=== PATIENT | male | born 1970 | race Caucasian/White ===

== ENCOUNTER → 2016-05-27 | Outpatient (CLI) | payer OTHER ==
[~2016-05-27] MED LIST: CHOL100010 PO; DPRSCR15 TOP; FEXO1TAB49 PO; MULT-506 PO; OXYC-106 PO; [UNRECOGNIZED DRUG - CODE] PO
--- NOTE | 2016-05-27 12:12 | DIAGNOSTIC IMAGING REPORT ---
LEFT FOOT MIN 3 VIEWS ROUTINE CLINICAL HISTORY: FOOT PAIN COMPARISON: None. DISCUSSION: No acute fractures or subluxations are visualized. There is a BB-like metallic foreign body at the level of the webspace between the first and second toes. Please correlate clinically. There are minor degenerative changes the level tarsometatarsal joints. IMPRESSION: 1. No acute fractures. 2. BB-like foreign body located at the level of the webspace between the first and second toes. Clinical correlation is advocated Electronically signed by: Nemesio Angelo M.D. 05/27/2016 12:11 PM Dictated Date/Time: 05/27/2016 12:09 PM
== END | disposition home or self-care (01) ==
LOC: C.RAD 11:50
PROVIDERS: ATTEND Neuromusculoskeletal Medicine & OMM
DX: M79.672 Pain in left foot (principal); R93.7 Abnormal findings on diagnostic imaging of other parts of musculoskeletal system

== ENCOUNTER → 2016-06-25 | Outpatient (CLI) | payer OTHER ==
[2016-06-25 17:29] LABS: BASO % 0.6 %; BASO ABS # 0.04 K/uL (0-0.2); COMPLETE YES; EOS % 4.7 %; HEMATOCRIT 43.4 % (42-52); IG% 0.5 %; LYMPH % 21.7 %; LYMPH ABS # 1.35 K/uL (1.2-3.4); MEAN CELL VOLUME 91.6 fL (80-100); MEAN CORPUSCULAR HEMOGLOBIN 32.7 pg (25-34); MEAN CORPUSCULAR HGB CONC 35.7 g/dl (32-36); MEAN PLATELET VOLUME 9.8 fL (7.4-10.4); MONO % 7.4 %; NEUT % 65.1 %; PLATELET COUNT 261 K/uL (130-400); RED BLOOD COUNT 4.74 M/uL (4.7-6.1); WHITE BLOOD COUNT 6.22 K/uL (4.8-10.8)
[2016-06-25 17:38] LABS: ALT/SGPT 56 U/L (12-78); BLOOD UREA NITROGEN 11 mg/dl (7-18); BUN/CREATININE RATIO 9.8 (10-20); CARBON DIOXIDE 26 mmol/L (21-32); CHLORIDE 109 mmol/L (98-107); CHOLESTEROL 170 mg/dl (0-200); GLUCOSE 96 mg/dl (70-99); POTASSIUM 4.3 mmol/L (3.5-5.1); SODIUM 142 mmol/L (136-145)
[2016-06-25 17:49] LABS: ALB/GLOB RATIO 1.1 (0.9-2); ALKALINE PHOSPHATASE 87 U/L (45-117); AST/SGOT 33 U/L (15-37); CHOLESTEROL/HDL RATIO 3.2; HDL CHOLESTEROL 53 mg/dl; LDL CHOLESTEROL CALCULATED 80 mg/dl; PROSTATE SPECIFIC ANTIGEN 0.552 ng/ml (0.000-4.000); THYROID STIMULATING HORMONE 0.972 uIu/ml (0.300-4.500); TRIGLYCERIDES 183 mg/dl (0-150); VERY LOW DENSITY LIPOPROT CALC 37 mg/dl
== END | disposition home or self-care (01) ==
LOC: C.LABPBG 13:26
PROVIDERS: ATTEND Neuromusculoskeletal Medicine & OMM
DX: Z00.00 Encounter for general adult medical examination without abnormal findings (principal); M54.5 Low back pain

== ENCOUNTER 2017-07-23 14:13 | Emergency (ER) | payer OTHER ==
[~2017-07-23] VITALS: Ht 182.9 cm; Wt 117.7 kg
[~2017-07-23 14:13] MED LIST changes: -OXYC-106 PO; +OXYC10TA80 PO
[2017-07-23 14:20] VITALS: TEMP 37.1; Ht 182.9 cm; Wt 117.7 kg
[2017-07-23] MEDS ORDERED: CETI10TA84 PO (14:34)
--- NOTE | 2017-07-23 15:08 | DIAGNOSTIC IMAGING REPORT ---
R KNEE 3 VIEWS CLINICAL HISTORY: R knee pain s/p fall trauma. Pain. COMPARISON: None. DISCUSSION: The bones and joint spaces appear intact. There is no evidence of fracture, dislocation or bony disease. There is no evidence for soft tissue swelling. IMPRESSION: Negative study. The above report was generated using voice recognition software. It may contain grammatical, syntax or spelling errors. Electronically signed by: Esvin Nguyen M.D. 07/23/2017 3:06 PM Dictated Date/Time: 07/23/2017 3:06 PM
--- NOTE | 2017-07-23 15:13 | DIAGNOSTIC IMAGING REPORT ---
L ANKLE MIN 3 VIEWS ROUTINE HISTORY: 46 years-old Male L ankle pain s/p fall acute left ankle pain status post fall COMPARISON: Left foot radiographs 05/27/2016 TECHNIQUE: 3 views of the left ankle FINDINGS: There is mild circumferential soft tissue swelling about the ankle without acute fracture or dislocation. No osteochondral defect. Corticated bone fragment measuring 4 mm is seen adjacent to the distal fibula suggesting accessory ossicle or healed fracture fragment. Mild marginal spurring of the tibiotalar joint. No opaque foreign body. IMPRESSION: Mild soft tissue swelling without acute fracture or dislocation. The above report was generated using voice recognition software. It may contain grammatical, syntax or spelling errors. Electronically signed by: Juan Umana M.D. 07/23/2017 3:11 PM Dictated Date/Time: 07/23/2017 3:05 PM
[2017-07-23] MEDS ORDERED: BACITRACIN OINT 15 GM TUBE EXT STA (15:42)
[2017-07-23] MEDS ORDERED: SEPTRA DS HOME PACK 1 EA VIAL PO STA (15:42)
[2017-07-23] MEDS ORDERED: CEPHALEXIN 500MG HOME PACK 1 EA BTL PO STA (15:42)
[2017-07-23] MEDS ORDERED: LEVOFLOXACIN 750 MG TAB PO STA (16:06)
[2017-07-23] MEDS ORDERED: DOXYCYCLINE HYCLATE 100 MG CAP PO STA ×2 (16:06)
[2017-07-23] MEDS ORDERED: LEVO750T23 PO (16:10)
[2017-07-23] MEDS ORDERED: DOXY-300 PO (16:10)
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
[2017-07-23 16:20] VITALS: BP 138/95; PULSE 99; O2SAT 95
== END 2017-07-23 16:20 | disposition home or self-care (01) ==
LOC: C.EDB 14:14 → C.EDD 16:20
DX: L03.115 Cellulitis of right lower limb (principal); S90.512A Abrasion, left ankle, initial encounter; X50.0XXA Overexertion from strenuous movement or load, initial encounter; W19.XXXA Unspecified fall, initial encounter; J45.909 Unspecified asthma, uncomplicated; F17.210 Nicotine dependence, cigarettes, uncomplicated; Z79.899 Other long term (current) drug therapy

== ENCOUNTER 2023-10-14 05:43 | Observation (INO) ==
--- NOTE | 2023-09-17 13:47 | PAT Medication Instructions ---
Medication Instructions Date of Service September 17, 2023 Home Medications Medication Instructions Recorded fluticasone propionate 50 1 spray intranasal DAILY #48 mL 04/03/20 mcg/actuation nasal spray,suspension (Flonase Allergy Relief) tizanidine 2 mg capsule (Zanaflex) 2 mg PO BID PRN muscle spasticity 05/19/23 #180 caps cetirizine 10 mg tablet (Zyrtec) 10 mg PO DAILY multivitamin 1 tab PO DAILY omega 8-yis-sup-fish oil 1,000 mg (120 mg-180 mg) capsule (Fish Oil) 1 cap PO DAILY omeprazole 20 mg-sodium bicarbonate 1.1 gram capsule (Zegerid OTC) 2 cap PO DAILY fluticasone propionate 50 mcg/actuation nasal spray,suspension (Flonase Allergy Relief) 1 spray intranasal DAILY diclofenac sodium 1 % topical gel 2 g topical QID PRN Pain tizanidine 2 mg capsule (Zanaflex) 2 mg PO BID PRN muscle spasticity gabapentin 100 mg capsule 100 mg PO TID PRN Pain naproxen 500 mg tablet 500 mg PO BID PRN Pain ASK your surgeon for instructions naproxen 500 mg tablet 500 mg PO BID PRN Pain STOP taking 2 weeks before surgery (or as soon as possible if surgery is within 2 weeks) omega 0-pfl-sig-fish oil 1,000 mg (120 mg-180 mg) capsule (Fish Oil) 1 cap PO DAILY STOP taking 24 hours before surgery diclofenac sodium 1 % topical gel 2 g topical QID PRN Pain DO NOT take the morning of surgery cetirizine 10 mg tablet (Zyrtec) 10 mg PO DAILY multivitamin 1 tab PO DAILY Take morning of surgery With a small sip of water, OTHERWISE NOTHING TO EAT OR DRINK AFTER MIDNIGHT: omeprazole 20 mg-sodium bicarbonate 1.1 gram capsule (Zegerid OTC) 2 cap PO DAILY fluticasone propionate 50 mcg/actuation nasal spray,suspension (Flonase Allergy Relief) 1 spray intranasal DAILY tizanidine 2 mg capsule (Zanaflex) 2 mg PO BID PRN muscle spasticity (if needed) gabapentin 100 mg capsule 100 mg PO TID PRN Pain (if needed) Take evening before surgery tizanidine 2 mg capsule (Zanaflex) 2 mg PO BID PRN muscle spasticity (if needed) gabapentin 100 mg capsule 100 mg PO TID PRN Pain (if needed) Other Notes If you have any questions please call us at [phone] or [phone] or [phone] or [phone]
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
[2023-10-14] MEDS: LR 60ML/HR IV SCH (06:17)
[2023-10-14] MEDS: LR 15ML/HR IV SCH (06:17)
[2023-10-14] MEDS ORDERED: ePHEDrine sulfate 50 MG/ML AMP IV PRN (06:50)
[2023-10-14] MEDS ORDERED: ONDANSETRON INJ 2 MG/ML 2 ML VIAL IV PRN ×2 (06:50→11:40)
[2023-10-14] MEDS ORDERED: ATROPINE SULFATE 0.1 MG/ML 10ML SYR IV PRN (06:50)
[2023-10-14] MEDS ORDERED: HYDROmorphone INJ 1 MG/ML SYRINGE IV PRN (06:50)
[2023-10-14] MEDS ORDERED: DEXAMETHASONE SOD INJ 4 MG/ML VIAL ONE (06:59)
[2023-10-14] MEDS ORDERED: MIDAZOLAM HCL 1 MG/ML 2ML VIAL ONE (06:59)
[2023-10-14] MEDS ORDERED: fentaNYL citrate PF 100 MCG/2 ML VIAL ONE ×3 (06:59→09:29)
[2023-10-14] MEDS ORDERED: ROCURONIUM BROMIDE 10 MG/ML 5 ML VIAL IV ONE ×3 (06:59→08:26)
[2023-10-14] MEDS ORDERED: GLYCOPYRROLATE 0.2 MG/ML VIAL ONE (06:59)
[2023-10-14] MEDS ORDERED: SUGAMMADEX SODIUM 200 MG/2 ML VIAL IV ONE (06:59)
[2023-10-14] MEDS ORDERED: HYDROmorphone INJ 2 MG/ML SYR/VIAL ONE (06:59)
[2023-10-14] MEDS ORDERED: ONDANSETRON INJ 2 MG/ML 2 ML VIAL ONE (06:59)
[2023-10-14] MEDS ORDERED: KETAMINE HCL 10MG/ML SYR ONE (06:59)
[2023-10-14] MEDS ORDERED: PROPOFOL IV EMULSION 10 MG/ML 20 ML VIAL IV ONE (06:59)
--- NOTE | 2023-10-14 07:17 | History & Physical Bridge Note ---
Date of Service October 14, 2023 History & Physical Bridge Note I have examined the patient, reviewed the History & Physical and in the interval since the performance of the History & Physical I have noted the following changes of clinical significance: no changes noted
[2023-10-14] MEDS: ceFAZolin 2000MG 2,000 MG/15 ML SYR IV SCH ×2 (08:09→16:28)
[2023-10-14] MEDS: THROMBIN 5000 UNITS KIT ONE (11:11)
[2023-10-14] MEDS: FLOSEAL HEMOSTATIC MATRIX 5ML TOP ONE (11:11)
[2023-10-14] MEDS: VANCOMYCIN HCL 1000MG/20ML VIAL ONE (11:11)
[2023-10-14] MEDS: GELATIN SPONGE 12-7MM ONE (11:11)
[2023-10-14] MEDS ORDERED: METOCLOPRAMIDE HCL INJ 5 MG/ML 2 ML VIAL IV PRN (11:40)
[2023-10-14] MEDS ORDERED: ALUMINUM/MAGNESIUM SUSP 30 ML UDC PO PRN (11:40)
[2023-10-14] MEDS ORDERED: LORazepam 0.5 MG in SYRINGE 0.25 ML IV PRN (11:40)
[2023-10-14] MEDS ORDERED: RACEPINEPHRINE 2.25% NEBU SOLN 0.5 ML VIAL INH PRN (11:40)
[2023-10-14] MEDS ORDERED: PROMETHAZINE HCL 12.5 MG in SODIUM CHLORIDE 0.9% 50 ML IV PRN (11:40)
[2023-10-14] MEDS ORDERED: SOD PHOSPHATE/SOD BIPHOSPHATE ENEMA 132 ML BTL PR PRN (11:40)
[2023-10-14] MEDS ORDERED: NALOXONE HCL 0.4 MG/1 ML VIAL/CARP IV PRN (11:40)
[2023-10-14] MEDS ORDERED: hydrOXYzine HCl 25 MG TAB PO PRN (11:40)
[2023-10-14] MEDS ORDERED: DO NOT ADMINISTER PNEUMOCOCCAL VACCINE PRN (11:40)
[2023-10-14] MEDS ORDERED: MAGNESIUM HYDROXIDE SUSP 30 ML UDC PO PRN (11:40)
[2023-10-14] MEDS ORDERED: DO NOT ADMINISTER FLU VACCINE PRN (11:40)
[2023-10-14] MEDS ORDERED: dexAMETHasone 8 MG in SYRINGE 0 ML IV PRN (11:40)
[2023-10-14] MEDS ORDERED: LORazepam 0.5 MG TAB PO PRN (11:40)
[2023-10-14] MEDS ORDERED: bisacodyL 10 MG SUPP PR PRN (11:40)
[2023-10-14] MEDS ORDERED: ONDANSETRON 4 MG OD TAB PO PRN (11:40)
[2023-10-14] MEDS ORDERED: FAMOTIDINE 20 MG TAB PO PRN (11:40)
[2023-10-14] MEDS ORDERED: diphenhydrAMINE Capsule 25 MG CAP PO PRN (11:40)
--- NOTE | 2023-10-14 11:40 | Post Operative Brief Note ---
PG Immediate Post Op with CF Date of Surgery October 14, 2023 Pre & Post Diagnosis Operation Date: 10/14/23 07:15 Pre-Op Diagnosis: Cervical Disc Disorder C4-C5 Level with Radiculopathy Post-Op Diagnosis: Cervical Disc Disorder C4-C5 Level with Radiculopathy I identified the patient and participated in the time-out.: Yes Procedure Operation Date: 10/14/23 07:15 Actual Procedures p C4-C5 Anterior Cervical Discectomy and Fusion with Cage Placement, (Not Applicable) - Bob Evans MD s Hardware Removal(Not Applicable) - Bob Evans MD Surgeon Bob Evans MD Manager Customer none Estimated Blood Loss 5 Findings Consistent with Post-Op Diagnosis Specimens Specimen Description: None per surgeon Drains Seay Catheter
[2023-10-14] MEDS: fentaNYL citrate PF 100 MCG/2 ML VIAL IV PRN (11:43)
[2023-10-14] MEDS ORDERED: tiZANidine HCL 4 MG TABLET PO PRN (11:47)
[2023-10-14] MEDS ORDERED: ACETAMINOPHEN 500 MG TAB PO PRN (11:47)
[2023-10-14] MEDS ORDERED: GABAPENTIN 100 MG CAP PO PRN (11:47)
--- NOTE | 2023-10-14 12:41 | Fluoroscopy Report ---
FL cervical 2-3V CLINICAL HISTORY: C4-C5 ACDF COMPARISON STUDY: CT 07/15/2023 FLUOROSCOPY TIME: 61.9 seconds FLUOROSCOPY IMAGES: 4 EXPOSURE DOSE: 7.18 mGy FINDINGS: Anterior plate and screw fusion hardware redemonstrated at C5-C7. Interval anterior approac h discectomy at C4-C5. The C5 screws have been removed. Endotracheal tube in place. IMPRESSION: Fluoroscopic assistance as above. ACT 112: Negative or not required by law. Electronically signed by: Hans Umana M.D. 10/14/2023 12:39 PM
--- NOTE | 2023-10-14 12:48 | Anesthesiology Progress Note ---
Date of Service October 14, 2023 Anesthesia Post Procedure Vital Signs Vital Signs: Temp Pulse Pulse Resp BP Pulse Ox O2 Del Method 10/14/23 12:45 37.0 C 91 H 13 131/84 93 Nasal Cannula 10/14/23 12:35 83 11 L 135/83 92 Nasal Cannula 10/14/23 12:25 100 H 18 130/98 93 Nasal Cannula 10/14/23 12:15 94 H 15 139/96 93 Nasal Cannula 10/14/23 12:05 86 14 136/85 94 Nasal Cannula 10/14/23 11:55 103 H 12 137/95 94 Nasal Cannula 10/14/23 11:45 96 H 13 143/92 H 93 Nasal Cannula 10/14/23 11:36 36.8 C 115 H 24 145/94 H 96 Oxymask 10/14/23 06:00 37 C 64 20 140/88 96 Room Air O2 Flow Rate 10/14/23 12:45 3 10/14/23 12:35 3 10/14/23 12:25 3 10/14/23 12:15 3 10/14/23 12:05 4 10/14/23 11:55 4 10/14/23 11:45 4 10/14/23 11:36 6 10/14/23 06:00 Pain Intensity Bilateral Neck: Pain Intensity: 7 Neck: Pain Intensity: 1 Transfer of Care Handoff Completed per policy Notes Mental Status: alert / awake / arousable and participated in evaluation Patient Amnestic to Procedure: Yes Nausea / Vomiting: adequately controlled Pain: adequately controlled Airway Patency, RR, SpO2: stable & adequate BP & HR: stable & adequate Hydration State: stable & adequate Anesthetic Complications: no major complications apparent and Pt Satisfied with anesthetic care
[2023-10-14] MEDS: LACTATED RINGER'S 1,000 ML IV SCH (15:46)
[2023-10-14] MEDS: HYDROmorphone INJ 0.5 MG/0.5 ML SYR IV PRN (16:27)
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
[2023-10-14] MEDS ORDERED: ceFAZolin 1000MG 1,000 MG/7.5 ML SYR IV SCH (17:45)
[2023-10-14] MEDS: NICOTINE 14 MG/24 HR PATCH TD SCH (18:19)
[2023-10-14] MEDS: oxyCODONE/ACETAMINOPHEN 5mg/325mg TAB PO PRN (19:19)
[2023-10-14] MEDS: DOCUSATE SODIUM/SENNA 50/8.6MG TAB PO SCH (20:40)
[2023-10-14] MEDS: ACETAMINOPHEN 1,000 MG/100 ML VIAL IV PRN (22:44)
[2023-10-15] MEDS: POLYETHYLENE (MIRALAX) 17 GM PACK PO SCH (06:32)
[2023-10-15] MEDS: CETIRIZINE HCL 10 MG TABLET PO SCH (08:05)
[2023-10-15] MEDS: PANTOprazole 40 MG TAB PO SCH (08:05)
[2023-10-15] MEDS ORDERED: PANTOprazole 40 MG TAB PO SCH (09:00)
[2023-10-15] MEDS ORDERED: OMEGA-3 (PURIFIED FISH OIL) 1 GM CAP PO SCH (09:00)
[2023-10-15] MEDS ORDERED: MULTIVITAMIN TAB PO SCH (09:00)
--- NOTE | 2023-10-15 09:18 | Orthopedic Progress Note ---
Date of Service October 15, 2023 Subjective Patient seen and examined, he does some soreness with swallowing but he is not having any significant dysphagia, he notes a distinct improvement of his preoperative symptoms including numbness in his left arm and also diarrhea we had spasm and or knot in his left side of his neck. Exam reveals intact upper extremities, dressing site unremarkable. Impression: Postop day 1 from C4-5 anterior cervical discectomy and fusion, overall improved from preoperative symptoms. Plan: Today at this time I discussed with the patient the surgery, and his postop course, he will return to the office in 2 weeks, will discharge today with some limited pain medication. Review of Systems All systems reviewed & are unremarkable except as noted in HPI & below. Physical Exam . Results & Data Results & Data Laboratory Results . Diagnostic Findings . PG Care Time/CCT Total # of Minutes Spent Total Time Spent with Patient: Total time spent is greater than 50% in coordination of care (as documented) at patient's floor/unit and/or counseling patient: Coding Level of Care Code 02951 Post Operative Follow-Up
--- NOTE | 2023-10-15 09:58 | Discharge Summary ---
Date of Service October 15, 2023 Admission HPI (Per Admitting) Cervical stenosis/radiculopathy Principal Diagnosis Same as "Discharge Diagnosis" noted below under Discharge Instructions. Discharge Exam . Discharge Data Consultations 10/14/23 11:40 Consult Hospitalist Routine Procedures Performed Operation Date: 10/14/23 07:15 Actual Procedures p C4-C5 Anterior Cervical Discectomy and Fusion with Cage Placement, (Not Applicable) - Bob Evans MD s Hardware Removal(Not Applicable) - Bob Evans MD Ordered Studies 10/14/23 07:00 FL cervical 2-3V Routine Hospital Course (1) Cervical disc disorder at C4-C5 level with radiculopathy: (2) Cervical spinal stenosis due to adjacent segment disease after fusion pro cedure: PG Care Time/CCT Total # of Minutes Spent Total Time Spent with Patient: Total time spent is greater than 50% in coordination of care (as documented) at patient's floor/unit and/or counseling patient: Discharge Plan Discharge Items Patient Disposition: Home - Self-Care Reason For Visit: Cervical Disc Disorder C4-C5 Level with Radiculopa Discharge Diagnosis: Cervical disc disorder C4-5 with radiculopathy Condition on Discharge: Good Activity: As commented below Lifting: No more than 10 pounds Bathing: May shower/bathe in 3 days Non-emergency contact: Surgeon Call non-emergency contact if: your pain is worsening Follow-up/Referrals: Tylor Villarreal DO [Primary Care Provider] - Diet: Regular Addtl Attending Provider Instructions: Limited on cervical range of motion, no anti-inflammatories for 2 months. Pending Studies at Discharge: No Stand-Alone Forms: [facility] [employer], Smoking Cessation Medications and DC Order Prescriptions: New oxycodone-acetaminophen [Percocet] 5-325 mg tablet 1 tab PO Q6H PRN (Reason: pain) Qty: 20 0RF Continued tizanidine [Zanaflex] 2 mg capsule 2 mg PO BID PRN (Reason: muscle spasticity) Qty: 180 0RF fluticasone propionate [Flonase Allergy Relief] 50 mcg/actuation spray,suspension 1 spray intranasal DAILY Qty: 48 1RF Rx Instructions: administer into each nostril diclofenac sodium 1 % gel 2 g topical QID PRN (Reason: Pain) multivitamin Tablet 1 tab PO DAILY cetirizine [Zyrtec] 10 mg Tablet 10 mg PO DAILY omeprazole-sodium bicarbonate [Zegerid OTC] 20-1.1 mg-gram Capsule 2 cap PO DAILY omega 8-ndg-tms-fish oil [Fish Oil] 1,000 mg (120 mg-180 mg) Capsule 1 cap PO DAILY gabapentin 100 mg capsule 100 mg PO TID PRN (Reason: Pain) Rx Instructions: take 1 PO daily x 2-3 days, then twice daily x 2-3 days, then three times daily acetaminophen 500 mg Tablet 500 mg PO QID PRN (Reason: Pain, Moderate) Discontinued naproxen 500 mg tablet 500 mg PO BID PRN (Reason: Pain) Rx Instructions: TAKE 1 TABLET BY MOUTH TWICE A DAY NEEDED FOR PAIN Discharge Orders: Discharge Order (Routine); Ordered 10/15/23 Ordered By: Bob Evans Admission Data Admit Date/Time: 10/14/23 11:40 Attending Provider: Bob Evans Admit Provider: Bob Evans Primary Care Provider: Tylor Villarreal Other Providers: Tray Lynn; Hu Hennessy; Good Medina; Omero Flores; Urbano Garcia; Carito Carson; Kayla Robert; Mercy Silva; Manny Bustillo; Vladimir Carmen; Roxann Thomas; Karlo Hobbs; Hu Garza; Francis Tapia; Johanna Willett; Dalila Dawn; Dalila Fernandez; Shelley Hillman; Arpit Thao; Maame Schwartz; Reji Elias; Augie Desai; Yossi Galvez; Radha Whitaker; Coby Ferreira; Jj Kaye; Ernesto Valentine; Good Amato; Omero Laird; Latanya Mensah; Ana Maxwell; Sabina Powell
--- NOTE | 2023-10-15 10:20 | Operative Report ---
PG Post Operative Report Pre & Post Diagnosis Operation Date: 10/14/23 07:15 Pre-Op Diagnosis: Cervical Disc Disorder C4-C5 Level with Radiculopathy Post-Op Diagnosis: Cervical Disc Disorder C4-C5 Level with Radiculopathy I identified the patient and participated in the time-out.: Yes Procedure Operation Date: 10/14/23 07:15 Actual Procedures p C4-C5 Anterior Cervical Discectomy and Fusion with Cage Placement, (Not Applicable) - Bob Evans MD s Hardware Removal(Not Applicable) - Bob Evans MD Surgeon Bob Evans MD Design Specialist none Estimated Blood Loss 5 Findings Consistent with Post-Op Diagnosis Specimens none Description of Procedure 1. C4-5 anterior cervical decompression/arthrodesis (06500) 2. Anterior interbody cage, ROIC 7 mm x 14 x 17, small blades with magnet toss and products of local decompression. (85536) 3. Removal of deep implant, superior locking screws of anterior plate. (60325) 4. Products of the anterior decompression and removal of osteophyte. (96331) Patient was taken the operating room and after adequate anesthesia was carefully positioned supine on the OSI flat top table. I then moved ahead with preprepping of the cervical region followed by then positioning. Fluoroscopy was brought in I marked the location of the incision which corresponded to a prior incision on the patient's left side. Prep and drape was performed, it began the procedure left-sided incision facing down to the medial border the sternocleidomastoid and onto the anterior aspect of cervical spine. It is to note that scar tissue was encountered, but I was able to carefully mobilize the tissues away from the area of surgical focus at the C4-5 level in the upper end of the prior plate placed extending from C5-C7. Once mobilized, I confirmed the location fluoroscopically, and then began the procedure of exposing the upper end of the cervical plate. Bone was covering some of this area more so on the right side, I removed the soft tissues and used an osteotome and rongeur to remove this covering over the upper end of the plate, this bone was preserved and utilized for the fusion inside the interbody cage. I then inserted distractor pins both at C4 and C5 through the plate anteriorly, and then set the retractors. Operative microscope was brought in, I then incised the anterior annulus followed by then removal of disc material thoroughly out to the uncinates on both sides and also removal of cartilage from the endplates. This process continued until the complete decompression was performed across the posterior aspect of the interspace with utilization of a high-speed bur followed by combination curettes and Kerrison punches completing a decompression down to the dura. Trials were then inserted and I selected the size as noted, this was obtained, and then filled with the fusion material along with the pieces of bone graft obtained. This was then tapped into position after removal of the superior locking screws from the prior plate this involved disengaging the locking mechanism and and removal of the screws. Once the cage was then placed, the fins were then deployed both superiorly and inferiorly without issue and the position of the cage was confirmed fluoroscopically. Final images were then obtained, operative site was inspected no issues were noted, vancomycin powder was placed followed by then closure using 3-0 Vicryl sutures benzoin and Steri- Strips. Sterile dressings applied, patient was taken recovery room in satisfactory condition. I attest to the content of the Intraoperative Record and any orders documented therein. Any exceptions are noted below.
[2023-10-15] MEDS: ACETAMINOPHEN 500 MG TAB PO PRN (10:37)
--- NOTE | 2023-10-15 14:43 | Communication Note ---
Date of Service: October 15, 2023 Doing very well this AM with continued resolution of radicular symptoms tolerating liquid diet, ambulatory in room. Discharging home today.
== END 2023-10-15 11:34 | disposition home or self-care (01) ==
LOC: ASU 05:43 → 3E 05:43